=== PATIENT | female | born 1960 | race Caucasian/White ===

== ENCOUNTER 2020-09-27 10:41 | Outpatient (REF) | payer BC, SELFPAY | END 2020-09-27 10:42 | disposition home or self-care (01) | LOC: HO.LAB 10:41 | PROVIDERS: Visit Provider Internal Medicine | DX: Z20.828 Contact with and (suspected) exposure to other viral communicable diseases (principal) | CPT/HCPCS: U0003 ==

== ENCOUNTER 2021-05-09 08:01 | Outpatient (REF) | payer BC, SELFPAY ==
[2021-05-14 08:12] LABS: HPV mRNA E6/E7 rflx Not Detected (Not Detected)
== END 2021-05-09 08:02 | disposition home or self-care (01) ==
LOC: HO.LAB 08:01
PROVIDERS: PCP Internal Medicine; Visit Provider Obstetrics & Gynecology
DX: Z01.419 Encounter for gynecological examination (general) (routine) without abnormal findings (principal); N88.8 Other specified noninflammatory disorders of cervix uteri; N95.0 Postmenopausal bleeding; Z87.891 Personal history of nicotine dependence
CPT/HCPCS: 57500; 58100; 87624; 88142; 88305

== ENCOUNTER → 2021-05-16 11:25 | Outpatient (BNVA) | payer BC, SELFPAY | PROVIDERS: PCP Internal Medicine; Visit Provider Obstetrics & Gynecology ==

== ENCOUNTER 2023-10-08 07:48 | Day surgery (SDC) | payer BC, SELFPAY ==
[2023-10-06 13:56] VITALS: BMI 38.4
--- NOTE | 2023-10-07 10:52 | HO.ANESPROP2 ---
Documented by User: Mandy Jessica NP 10/07/23 10:53 HPI - Anesthesia Eval Consult details Narrative: 63yo F for Colonoscopy PMFSH Active Problems Active Problems: All Active Problems (Updated 10/06/23 @ 13:54 by Ramandeep Olmedo RN) Postmenopausal bleeding (Acute) Past Medical History Medical History Pulmonary nodule History of in vitro fertilization Arthritis High cholesterol Hypertension Surgical History Surgical History H/O colonoscopy Social History Social History Alcohol intake: current Alcohol intake frequency: holidays/special occasions only Patient Tobacco Use Status: Former Tobacco user Use of substances other than those prescribed or required for medical reasons: No Are you DNR?: No Advance Directives: No Advance Directives Information Provided: Yes Gender identity: Female Meds Allergies Allergy/AdvReac Type Severity Reaction Status Date / Time No Known Allergies Allergy Verified 05/16/21 11:26 Home Medications Medication Instructions Recorded Confirmed Last Taken Type atorvastatin 20 mg tablet 20 mg PO DAILY 05/09/21 10/06/23 Unknown History lisinopril 10 mg tablet 10 mg PO DAILY 05/09/21 10/06/23 Unknown History multivitamin 1 tab PO DAILY 10/06/23 10/06/23 Unknown History fluticasone propionate 50 1 spray intranasal BID 10/08/23 10/08/23 Unknown History mcg/actuation nasal spray,suspension Exam Exam Date and Time: October 07, 2023 1052 Height,Weight and Vital Signs: Height 5 ft 2.75 in Weight 97.522 kg Assessment and Plan Assessment Anesthesia Assessment: Chart Reviewed Documented by User: Edwige Jacques MD 10/08/23 09:06 PMFSH Past Medical History Medical History Pulmonary nodule History of in vitro fertilization Arthritis High cholesterol Hypertension Surgical History Surgical History H/O colonoscopy Social History Social History Alcohol intake: current Alcohol intake frequency: holidays/special occasions only Patient Tobacco Use Status: Former Tobacco user Use of substances other than those prescribed or required for medical reasons: No Are you DNR?: No Advance Directives: No Advance Directives Information Provided: Yes Gender identity: Female Meds Allergies Allergy/AdvReac Type Severity Reaction Status Date / Time No Known Allergies Allergy Verified 05/16/21 11:26 Home Medications Medication Instructions Recorded Confirmed Last Taken Type atorvastatin 20 mg tablet 20 mg PO DAILY 05/09/21 10/06/23 Unknown History lisinopril 10 mg tablet 10 mg PO DAILY 05/09/21 10/06/23 Unknown History multivitamin 1 tab PO DAILY 10/06/23 10/06/23 Unknown History fluticasone propionate 50 1 spray intranasal BID 10/08/23 10/08/23 Unknown History mcg/actuation nasal spray,suspension Exam Airway Heart: RRR Lungs: CTA Assessment and Plan Assessment Anesthesia Assessment: Anesthesia Plan Discussed Final Anesthetic Review NPO: Yes ASA Class: II Final Preanesthetic Review: Meds/Allgs Chart Reviewed, Consent Obtained/Reviewed and Anes Risks/Benef Reviewed Patient Risk: Low Procedure Risk: Low Anesthetic Plan Anesthetic Plan: MAC: Disposition: Standard PACU Documented by User: Heidi Cook MD 10/08/23 09:18 PMFSH Active Problems Active Problems: All Active Problems (Updated 10/06/23 @ 13:54 by Ramandeep Olmedo RN) Postmenopausal bleeding (Acute) Increased BMI 38.4 No h/o ALAN Past Medical History Medical History Pulmonary nodule History of in vitro fertilization Arthritis High cholesterol Hypertension Family History Family history of problems with anesthesia: No Surgical History Surgical History H/O colonoscopy History of Problems with Anesthesia: No Social History Social History Alcohol intake: current Alcohol intake frequency: holidays/special occasions only Patient Tobacco Use Status: Former Tobacco user Use of substances other than those prescribed or required for medical reasons: No Are you DNR?: No Advance Directives: No Advance Directives Information Provided: Yes Gender identity: Female Meds Allergies Allergy/AdvReac Type Severity Reaction Status Date / Time No Known Allergies Allergy Verified 05/16/21 11:26 Home Medications Medication Instructions Recorded Confirmed Last Taken Type atorvastatin 20 mg tablet 20 mg PO DAILY 05/09/21 10/06/23 Unknown History lisinopril 10 mg tablet 10 mg PO DAILY 05/09/21 10/06/23 Unknown History multivitamin 1 tab PO DAILY 10/06/23 10/06/23 Unknown History fluticasone propionate 50 1 spray intranasal BID 10/08/23 10/08/23 Unknown History mcg/actuation nasal spray,suspension Exam Height,Weight and Vital Signs: Height 5 ft 2.75 in Weight 97.522 kg Vital Signs Temp Pulse Resp BP Pulse Ox O2 Del Method 10/08/23 08:05 98.4 F 88 16 123/82 94 Room Air Airway Mallampati Class: III (small mouth) TM Dist: >3cm Neck ROM: Full Loose/Missing/Broken Teeth: No (Denies broken, loose, missing teeth) Assessment and Plan Final Anesthetic Review Family History of Problems with Anesthesia: No History of Problems with Anesthesia: No Final Preanesthetic Review: No Changes in Pt Med Stat Assessment/Block/Sedation in SS: Assess/Block/Sedation-SS
[2023-10-08 08:05] VITALS: BP 123/82; PULSE 88; RESP 16; TEMP 36.9; O2SAT 94
[2023-10-08] MEDS: Lactated Ringers 1,000 ML 100 ML IVCONT (08:21)
--- NOTE | 2023-10-08 08:47 | P.HPSUR_ITS ---
Pre-Procedural Eval Section A Date of Service: 10/08/23 Section B Chief Complaint: Encounter for screening for malignant neoplasm of Details of Present Illness: see h&p no changes Relevant Family History (Specify if Yes): No Relevant Social History: None Present Medications: see Short Stay Collaborative assessment Medical History: No relevant PMH History of Previous Operations: No relevant previous surgery Allergies: Allergies Allergy/AdvReac Type Severity Reaction Status Date / Time No Known Allergies Allergy Verified 05/16/21 11:26 Review of Systems Sugical H&P ROS: Negative: Constitution, Cardiovascular, Respiratory, Neurolo gical, Psychiatric, Hem-Onc, Allergic/Immunologic, Gastrointestinal, Genitourinary, Musculoskeletal, Integumentary, Endocrine and Eyes/Ears/Nose/Throat Exam Surgical H&P Exam: Normal: HEENT, Normal: Heart, Normal: Lungs, Normal: Extremities, Normal: Abdomen, Normal: Skin and Normal: Neurological Plan Diagnosis/Plan: Unchanged I have reviewed the history and physical and performed a pertinent physical examination on my patient. No changes have occurred unless specified. Time Spent With Patient Time: Total time managing care of this patient today ____ minutes.
--- NOTE | 2023-10-08 09:17 | P.BOP_ITS ---
Brief Operative Note Date of Service: 10/08/23 Pre-op diagnosis: screening Post-op diagnosis: same Surgeon: Eliseo Gomez MD Anesthesia: MAC Was an Multimedia Journalist used for this Procedure?: No Estimated blood loss (mL): 0 Pathology: none sent Condition: stable Disposition: PACU
[2023-10-08 09:22] VITALS: BP 110/66; PULSE 84; RESP 18; TEMP 36.3; O2SAT 95
[2023-10-08 09:39] VITALS: BP 127/64; PULSE 80; RESP 17; TEMP 36.1; O2SAT 96
--- NOTE | 2023-10-08 09:45 | OP_ITS ---
DATE OF SERVICE: 10/08/2023 SURGEON: Eliseo Gomez MD INDICATIONS: Colon cancer screening. PREOPERATIVE DIAGNOSIS: POSTOPERATIVE DIAGNOSIS: PROCEDURE PERFORMED: Colonoscopy to the terminal ileum. ESTIMATED BLOOD LOSS: COMPLICATIONS: ANESTHESIA: Monitored anesthesia care. ASSISTANTS: SPECIMENS: DESCRIPTION OF PROCEDURE: A history and physical performed. The risks and benefits of the procedure were explained to the patient. Informed consent was obtained. The patient was placed in the left lateral decubitus position. A digital rectal exam was performed and was found to be normal. The Olympus pediatric video colonoscope was introduced in the rectum and advanced to the cecum. The cecum was identified by transillumination, palpation, and identification of ileocecal valve. Examination was performed. The scope was removed. She tolerated the procedure well and was returned to Recovery in stable condition. FINDINGS: The terminal ileum was examined and appeared normal. The visualized colonic mucosa was within normal limits without evidence of masses or ulcers. No polyps were identified. The quality of the prep was good. Retroflexed examination showed small internal hemorrhoids. There was mild sigmoid diverticulosis. IMPRESSION: Normal colonoscopy. RECOMMENDATION: 1. Follow up as needed. 2. Repeat colonoscopy is recommended in 10 years for average risk individuals. MD BLANCA Corral/DMITRY / [id number]
== END 2023-10-08 10:10 | disposition home or self-care (01) ==
PROVIDERS: PCP Internal Medicine; Visit Provider Internal Medicine Gastroenterology
PROC: 0DJD8ZZ Inspection of Lower Intestinal Tract, Via Natural or Artificial Opening Endoscopic (ICD-10-PCS; CPT 45378; principal; 2023-10-08 08:50)
DX: Z12.11 Encounter for screening for malignant neoplasm of colon (principal); K57.30 Diverticulosis of large intestine without perforation or abscess without bleeding; K64.8 Other hemorrhoids; I10 Essential (primary) hypertension; E78.5 Hyperlipidemia, unspecified; E66.9 Obesity, unspecified; Z68.38 Body mass index [BMI] 38.0-38.9, adult; Z87.891 Personal history of nicotine dependence; Z79.899 Other long term (current) drug therapy
CPT/HCPCS: 45378; J2704